=== PATIENT | male | born 1945 ===

== ENCOUNTER 2017-11-13 14:39 | Inpatient (IN) | payer MEDICARE ==
[~2017-11-13] VITALS: Ht 177.8 cm; Wt 100.7 kg
[2017-11-13] MEDS ORDERED: NITROGLYCERIN OINT 1 GM PACKET TP ONE ×2 (14:45→15:40)
[2017-11-13] MEDS ORDERED: ASPIRIN 325 MG TABLET PO ONE (14:45)
[2017-11-13 15:02] LABS: BASOPHILS # (AUTO) 0.1 K/uL (0.0-8.0); BASOPHILS % (AUTO) 1.1 % (0.0-2.0); EOSINOPHILS # (AUTO) 0.3 K/uL (0.0-0.7); EOSINOPHILS % (AUTO) 3.3 % (0.0-7.0); HEMATOCRIT 45.4 % (36.7-47.1); HEMOGLOBIN 15.3 g/dL (12.5-16.3); LYMPHOCYTES % (AUTO) 40.3 % (20.5-51.5); MEAN CORPUSCULAR HEMOGLOBIN 29.9 uug (23.8-33.4); MEAN CORPUSCULAR HGB CONC 34 g/dL (32.5-36.3); MEAN CORPUSCULAR VOLUME 88.7 fL (73.0-96.2); MONOCYTES # (AUTO) 0.9 K/uL (2.0-10.0); MONOCYTES % (AUTO) 11.3 % (0.0-11.0); NEUTROPHILS # (AUTO) 3.3 K/uL (1.8-8.9); PLATELET COUNT (AUTO) 219 K/uL (152-348); RED BLOOD CELL COUNT(AUTO) 5.12 MIL/uL (4.06-5.63); WHITE BLOOD COUNT (AUTO) 7.5 K/uL (3.6-10.2)
[2017-11-13 15:14] LABS: CARBON DIOXIDE 32 mmol/L (21-32); CHLORIDE 102 mmol/L (98-107); CREATININE 1.2 mg/dL (0.6-1.3); GLUCOSE 98 mg/dL (74-106); POTASSIUM 4.3 mmol/L (3.5-5.1); UREA NITROGEN, BLOOD 22 mg/dL (7-18)
[2017-11-13 15:20] LABS: ALANINE AMINOTRANSFERASE 45 U/L (16-63); ALKALINE PHOSPHATASE 74 U/L (50-136); ASPARTATE AMINOTRANSFERASE 21 U/L (15-37); BILIRUBIN,DIRECT 0.1 mg/dL (0.0-0.2); BILIRUBIN,TOTAL 0.5 mg/dL (0.2-1.0); TOTAL PROTEIN, SERUM 7.1 g/dL (6.4-8.2)
[2017-11-13] MEDS ORDERED: ASPIRIN 325 MG TABLET ONE (15:40)
[2017-11-13] MEDS ORDERED: MAGNESIUM HYDROXIDE 30 ML LIQUID UDC ONE (15:41)
[2017-11-13] MEDS ORDERED: MAGNESIUM HYDROXIDE 30 ML LIQUID UDC PO ONE (16:15)
--- NOTE | 2017-11-13 17:30 | NUR ---
no distress. pain free post meds. no sob. color good.
[2017-11-13 18:05] VITALS: BP 133/69
--- NOTE | 2017-11-13 18:05 | NUR ---
Received this admission from ER per panfilo 72 yo male with the chief complaint of indigestion and chest pain with dizziness, with the diagnosis of chest pain R/O ACS. Transferred to bed comfortably. Routine admission care rendered. Awake, alert, oriented x 4, able to move all extremities on purpose. Placed on Tele SB 1st degree block 58/min. Dr. Mora informed of admission.
[2017-11-13 19:00] VITALS: BP 157/64
--- NOTE | 2017-11-13 19:40 | NUR ---
PATIENT LYING ON BED, WITH NO DISTRESS, USING O2 @ 2L O2. C/O MILD PAIN ON CHEST . NITRO PASTE IN PLACE. FAMILY AT THE BED SIDE. B/P 157/64 HR 62. SINUS RHYTHM WITH EPISODES BUNDLE BRANCH BLOCK IN THE MONITOR. WILL CONTINUE TO MONITOR.
[2017-11-13 20:00] VITALS: BP 157/64
[2017-11-13] MEDS ORDERED: MORPHINE SULFATE 2 MG/1 ML DISP.SYRIN IV PRN (20:45)
[2017-11-13] MEDS ORDERED: ACETAMINOPHEN 325 MG TABLET PO PRN (20:45)
[2017-11-13] MEDS ORDERED: ONDANSETRON 4 MG/2 ML VIAL IV PRN (20:45)
[2017-11-13] MEDS ORDERED: TEMAZEPAM 15 MG CAPSULE PO PRN (20:45)
[2017-11-13] MEDS ORDERED: CLONIDINE HCL 0.1 MG TABLET PO PRN (20:45)
[2017-11-13] MEDS ORDERED: MAGNESIUM HYDROXIDE 30 ML LIQUID UDC PO PRN (20:45)
[2017-11-13] MEDS ORDERED: TEMAZEPAM 7.5 MG CAPSULE PO PRN (21:00)
[2017-11-13] MEDS ORDERED: MORPHINE SULFATE 4 MG/1 ML DISP.SYRIN IV PRN (21:00)
[2017-11-13] MEDS ORDERED: DOCUSATE SODIUM 250 MG CAPSULE PO SCH (21:00)
[2017-11-13 21:35] VITALS: BP 107/60
[2017-11-13] MEDS: DOCUSATE SODIUM 100 MG CAPSULE PO SCH (21:35)
--- NOTE | 2017-11-13 23:30 | NUR ---
Tylenol given on c/o headache
[2017-11-14] VITALS: BP 110/50
--- NOTE | 2017-11-14 01:00 | NUR ---
TELE MONITOR SHOWS SINUS LISA WITH AN EPISODE HR 40 . B/P CHECKED WITH RESULT 106/49. PATIENT ASYMPTOMATIC . FLUID ENCOURAGED. PATIENT STATED THAT HE HAS HX OF SLEEP APNEA YEARS AGO , HE HAS THE BIPAP MACHINE , BUT HE NEVER USE IT. WILL CONTINUE TO MONITOR. HEART RATE 47
[2017-11-14 04:00] VITALS: BP 117/66
[2017-11-14] MEDS: PANTOPRAZOLE SODIUM 40 MG TABLET.DR PO SCH (06:13)
--- NOTE | 2017-11-14 06:42 | NUR ---
PATIENT INTERMITTENTLY SLEEPING,NO C/ O F CHEST PAIN. TELE MONITOR NOTED WITH SINUS LISA WITH HR. PATIENT STATED THAT HE HAD HX OF SLEEP APNEA. WILL CONTINUE TO MONITOR.
[2017-11-14 07:23] LABS: BASOPHILS # (AUTO) 0.1 K/uL (0.0-8.0); BASOPHILS % (AUTO) 0.9 % (0.0-2.0); EOSINOPHILS # (AUTO) 0.3 K/uL (0.0-0.7); EOSINOPHILS % (AUTO) 4.3 % (0.0-7.0); HEMATOCRIT 41.8 % (36.7-47.1); HEMOGLOBIN 14.1 g/dL (12.5-16.3); LYMPHOCYTES % (AUTO) 30.7 % (20.5-51.5); MEAN CORPUSCULAR HGB CONC 34 g/dL (32.5-36.3); MEAN CORPUSCULAR VOLUME 88.9 fL (73.0-96.2); MONOCYTES # (AUTO) 0.6 K/uL (2.0-10.0); MONOCYTES % (AUTO) 9.5 % (0.0-11.0); NEUTROPHILS # (AUTO) 3.6 K/uL (1.8-8.9); NEUTROPHILS % (AUTO) 54.6 % (38.5-71.5); PLATELET COUNT (AUTO) 211 K/uL (152-348); WHITE BLOOD COUNT (AUTO) 6.6 K/uL (3.6-10.2)
[2017-11-14 07:26] LABS: ALANINE AMINOTRANSFERASE 38 U/L (16-63); ALKALINE PHOSPHATASE 62 U/L (50-136); ASPARTATE AMINOTRANSFERASE 20 U/L (15-37); BILIRUBIN,TOTAL 0.4 mg/dL (0.2-1.0); CARBON DIOXIDE 30 mmol/L (21-32); CHLORIDE 103 mmol/L (98-107); CHOLESTEROL 159 mg/dL (<200); GLUCOSE 89 mg/dL (74-106); HDL CHOLESTEROL 45 mg/dL (40-60); MAGNESIUM 2.6 mg/dL (1.8-2.4); POTASSIUM 4.1 mmol/L (3.5-5.1); TOTAL PROTEIN, SERUM 6.4 g/dL (6.4-8.2); TRIGLYCERIDES 142 MG/DL (30-150); UREA NITROGEN, BLOOD 18 mg/dL (7-18)
[2017-11-14] MEDS ORDERED: ASPIRIN 325 MG TABLET PO SCH (09:00)
[2017-11-14] MEDS ORDERED: POT1TABL PO (09:28)
[2017-11-14] MEDS ORDERED: LORA-259 PO (09:28)
[2017-11-14] MEDS ORDERED: PLEC3TAB PO (09:28)
[2017-11-14 09:50] LABS: THYROID STIMULATING HORMONE 2.754 mIU/mL (0.358-3.740)
[2017-11-14 11:02] VITALS: BP 129/71
[2017-11-14] MEDS ORDERED: NITROGLYCERIN 0.4 MG/TAB BOTTLE SL PRN (12:45)
[2017-11-14 15:00] VITALS: BP 133/75
[2017-11-14] MEDS ORDERED: SIMETHICONE 80 MG TAB.CHEW PO PRN (15:30)
[2017-11-14] MEDS ORDERED: SIMETHICONE 40 MG/0.6 ML 30 ML BOTTLE PO PRN (15:30)
[2017-11-14] MEDS ORDERED: LORAZEPAM 1 MG TABLET PO PRN (15:30)
[2017-11-14 19:00] VITALS: BP 130/58
--- NOTE | 2017-11-14 19:54 | NUR ---
PATIENT SITTING ON BED, TALKING WITH FAMILY. NO C/O OF CHEST PAIN OR ANY DISCOMFORT AT HIS TIME. SINUS LISA ON THE MONITOR WITH HR 54. WILL CONTINUE TO MONITOR
[2017-11-14] MEDS: ATORVASTATIN 20 MG TABLET PO SCH (20:51)
[2017-11-14] MEDS: DOCUSATE SODIUM 100 MG CAPSULE PO SCH (20:52)
--- NOTE | 2017-11-14 21:00 | NUR ---
PATIENT REFUSED STOOL SOFTENER HE HAD LOOSE BM DURING THE DAY SHIFT. NO C/O OF ANY DISCOMFORT AT THIS TIME.
[2017-11-15] VITALS: BP 118/49
[2017-11-15 04:00] VITALS: BP 123/69
[2017-11-15] MEDS: PANTOPRAZOLE SODIUM 40 MG TABLET.DR PO SCH (06:23)
--- NOTE | 2017-11-15 06:57 | NUR ---
PATIENT AWAKE ON BED. SLEPT FOR 9 HRS. NO C/O OF PAIN OR ANY DISCOMFORT. SINUS LISA ON THE MONITOR.
[2017-11-15] MEDS ORDERED: ASPIRIN 325 MG TABLET PO SCH (09:00)
[2017-11-15] MEDS: ASPIRIN EC 81 MG TABLET.DR PO SCH (09:23)
[2017-11-15] MEDS: ISOSORBIDE MONONITRATE 30 MG TAB.SR.24H PO SCH (09:23)
[2017-11-15 11:28] VITALS: BP 110/62
[2017-11-15 15:25] VITALS: BP 103/64
[2017-11-15 19:53] VITALS: BP 98/57
--- NOTE | 2017-11-15 20:00 | NUR ---
RECEIVED PT AWAKE IN BED, HE'S ALERT AND ORIENTED X4 AND ABLE TO STATE HIS NEEDS. HE'S ON TELE WITH SINUS LISA AT 52 ON THE MONITOR. HE DENIES ANY CHEST PAIN, NO S/S OF RESP DISTRESS. FAMILY AT BESIDE, SAFETY MEASURES IN PLACE. NO CONCERNS AT THIS TIME, WILL CONTINUE TO MONITOR PT
[2017-11-15 20:30] VITALS: BP 103/57
[2017-11-15] MEDS: ATORVASTATIN 20 MG TABLET PO SCH (21:33)
[2017-11-15] MEDS: DOCUSATE SODIUM 100 MG CAPSULE PO SCH (21:34)
[2017-11-16] VITALS: BP 107/65
[2017-11-16 04:00] VITALS: BP 117/64
--- NOTE | 2017-11-16 05:19 | NUR ---
PATIENT SLEPT THROUGHOUT THE NIGHT HE DENIES ANY CHEST PAIN OR DISCOMFORT. ALL SAFETY MEASURES IN PLACE, CALL LIGHT LEFT WITHIN PATIENT'S REACH . NO CONCERNS AT PRESENT, ALL NEEDS MET ON THIS SHIFT
[2017-11-16] MEDS: PANTOPRAZOLE SODIUM 40 MG TABLET.DR PO SCH (06:21)
[2017-11-16 06:51] LABS: BASOPHILS # (AUTO) 0.1 K/uL (0.0-8.0); EOSINOPHILS # (AUTO) 0.3 K/uL (0.0-0.7); HEMOGLOBIN 14.4 g/dL (12.5-16.3); LYMPHOCYTES # (AUTO) 3.1 K/uL (20.0-40.0); LYMPHOCYTES % (AUTO) 37.4 % (20.5-51.5); MEAN CORPUSCULAR HGB CONC 33 g/dL (32.5-36.3); MEAN CORPUSCULAR VOLUME 89.9 fL (73.0-96.2); MONOCYTES # (AUTO) 0.7 K/uL (2.0-10.0); MONOCYTES % (AUTO) 8.1 % (0.0-11.0); NEUTROPHILS % (AUTO) 49.5 % (38.5-71.5); PLATELET COUNT (AUTO) 219 K/uL (152-348); RED BLOOD CELL COUNT(AUTO) 4.78 MIL/uL (4.06-5.63); WHITE BLOOD COUNT (AUTO) 8.2 K/uL (3.6-10.2)
[2017-11-16 06:58] LABS: ALANINE AMINOTRANSFERASE 32 U/L (16-63); ALKALINE PHOSPHATASE 67 U/L (50-136); ASPARTATE AMINOTRANSFERASE 14 U/L (15-37); BILIRUBIN,TOTAL 0.6 mg/dL (0.2-1.0); CARBON DIOXIDE 29 mmol/L (21-32); CHLORIDE 104 mmol/L (98-107); CREATININE 1.1 mg/dL (0.6-1.3); GLUCOSE 95 mg/dL (74-106); MAGNESIUM 2.4 mg/dL (1.8-2.4); PHOSPHOROUS 3.6 mg/dL (2.5-4.9); POTASSIUM 4.3 mmol/L (3.5-5.1); TOTAL PROTEIN, SERUM 6.6 g/dL (6.4-8.2)
[2017-11-16 07:23] LABS: UREA NITROGEN, BLOOD 19 mg/dL (7-18)
[2017-11-16] MEDS ORDERED: REGADENOSON 0.4 MG/5 ML PREFILLED SYR IV ONE (08:00)
--- NOTE | 2017-11-16 08:00 | NUR ---
Awake, alert, oriented x 4. Denies chest pain. Clarified diet. NPO after breakfast, no caffeine. Instructed
[2017-11-16] MEDS: ASPIRIN EC 81 MG TABLET.DR PO SCH (08:49)
[2017-11-16] MEDS: ISOSORBIDE MONONITRATE 30 MG TAB.SR.24H PO SCH (08:49)
[2017-11-16 11:01] VITALS: BP 122/65
[2017-11-16] MEDS ORDERED: ASPI-618 PO (13:01)
[2017-11-16] MEDS ORDERED: Isosorbide Mononitrate PO (13:01)
--- NOTE | 2017-11-16 13:12 | NUR ---
With discharge order to home. Saline lock removed. Tele removed. Prescription and DC instruction given to patient and family, verbalized understanding
--- NOTE | 2017-11-16 13:40 | NUR ---
Went home per ambulatory per request in fair condition, not in distress, afebrile, accompanied by family
== END 2017-11-16 13:42 | disposition home or self-care (01) | DRG 303 ==
LOC: ER 14:39 → TELE 17:53
PROVIDERS: ADMIT Internal Medicine; ATTEND Internal Medicine
DX: I25.118 Atherosclerotic heart disease of native coronary artery with other forms of angina pectoris (principal); I71.2 Thoracic aortic aneurysm, without rupture; I35.1 Nonrheumatic aortic (valve) insufficiency; E78.5 Hyperlipidemia, unspecified; F41.9 Anxiety disorder, unspecified; K58.9 Irritable bowel syndrome, unspecified; E66.9 Obesity, unspecified; Z68.31 Body mass index [BMI] 31.0-31.9, adult; M54.10 Radiculopathy, site unspecified; K21.9 Gastro-esophageal reflux disease without esophagitis; E86.0 Dehydration
CPT/HCPCS: 36415; 70030-TC; 71045; 83735; 84100; 84443; 85025; 85730; 93005; 93307; A4663; J2785